=== PATIENT | male | born 1975 | race Caucasian/White ===

== ENCOUNTER 2018-03-12 19:59 | Observation (INO) | payer SELFPAY ==
[2018-03-12] MEDS ORDERED: ASPIRIN 81 MG CHEWABLE TABLET ONE (20:34)
[2018-03-12 20:41] LABS: Absolute Lymphocytes (CBC) 2.4 K/uL (0.7-4.9); Absolute Monocytes 1.2 K/uL (0.1-1.3); Absolute Neutrophil 8.7 K/uL (1.8-8.0); Basophils % 0.7 % (0-1.3); Eosinophils % 0.5 % (0-4.4); Hematocrit 52.4 % (39.6-49.0); Lymphocytes % 19.5 % (15.3-44.8); MCH 28.1 pg (27.0-35.0); MCV 84.3 fL (80-100); MPV 7.9 fL (7.6-11.3); Monocytes % 9.9 % (3.3-12.3); RBC Red Blood Cell Count 6.21 M/uL (4.33-5.43)
[2018-03-12 20:49] LABS: Barbiturates NEGATIVE (NEGATIVE); Benzodiazepines NEGATIVE (NEGATIVE); Cocaine NEGATIVE (NEGATIVE); METHAMPHETAM NEGATIVE (NEGATIVE); Opiates NEGATIVE (NEGATIVE); Phencyclidine NEGATIVE (NEGATIVE); THC Cannibis NEGATIVE (NEGATIVE)
--- NOTE | 2018-03-12 20:56 | RAD REPORT ---
EXAM DESCRIPTION: RAD - Chest Single View - 03/12/2018 8:47 pm CLINICAL HISTORY: Chest pain, chest pressure COMPARISON: August 2013 TECHNIQUE: AP portable chest image was obtained 2035 hours . FINDINGS: Lung volumes are low. No peripheral mass, consolidation or failure finding. Lung markings are not significantly different. Heart and vasculature are normal. No measurable pleural effusion and no pneumothorax. No gross bony abnormality seen. No acute aortic findings suspected. IMPRESSION: No acute cardiopulmonary process. No significant change from comparison.
[2018-03-12 21:05] LABS: Albumin 4.3 g/dL (3.2-5.5); Bilirubin Direct 0.2 mg/dL (0-0.2); Bilirubin Total 0.7 mg/dL (0.3-1.2); CKMB Creatine Kinase MB 4.7 ng/ml (0.3-4.0); Protein, Total 7.4 g/dL (6.0-8.3)
[2018-03-12 21:26] LABS: Protime INR 1.04
[2018-03-12] MEDS ORDERED: NA CHLORIDE 0.9% 2,000 ML ONE (21:33)
[2018-03-12] MEDS ORDERED: ENOXAPARIN 80 MG/0.8 ML SQ ONE (21:33)
[2018-03-12] MEDS ORDERED: METOPROLOL TAR 50 MG TAB ONE (21:33)
[2018-03-12 22:22] LABS: Urine Blood NEGATIVE (NEG); Urine Glucose NEGATIVE (NEG); Urine Protein NEGATIVE (NEG); Urine pH 6.5 (5.0-7.0)
--- NOTE | 2018-03-12 22:34 | ER ---
Nurse's Notes [facility] Name: Deniz Mariee Age: 42 yrs Sex: Male : 1975 Arrival Date: 03/12/2018 Time: 20:00 Bed 30 Private MD: Antelmo Vásquez K Diagnosis: Chest pain, unspecified;Rhabdomyolysis Presentation: 03/12 20:04 Presenting complaint: Patient states: Chest pressure and mouth dryness that started aj today. Patient reports starting testosterone in December. Transition of care: patient was not received from another setting of care. Onset of symptoms was March 12, 2018. Risk Assessment: Do you want to hurt yourself or someone else? Patient reports no desire to harm self or others. Care prior to arrival: None. 20:04 Method Of Arrival: Ambulatory aj 20:04 Acuity: GABRIELA 3 aj 20:38 Initial Sepsis Screen: Does the patient meet any 2 criteria? No. Patient's initial rk2 sepsis screen is negative. Does the patient have a suspected source of infection? No. Patient's initial sepsis screen is negative. Triage Assessment: 20:07 General: Appears in no apparent distress. comfortable, Behavior is cooperative, aj appropriate for age, anxious. Pain: Complains of pain in chest. Neuro: Level of Consciousness is awake, alert, obeys commands, Oriented to person, place, time, situation, Appropriate for age. Cardiovascular: Reports chest pain. Respiratory: Airway is patent Respiratory effort is even, unlabored, Respiratory pattern is regular, symmetrical. Derm: Skin is intact, is healthy with good turgor, Skin is pink, warm \T\ dry. normal. Historical: - Allergies: 20:07 No Known Allergies; aj - Home Meds: 20:07 testosterone cypionate (bulk) 100 % miscellaneous powd [Active]; aj - PMHx: 20:07 None; aj - PSHx: 20:07 Appendectomy; Neck; aj - Immunization history:: Adult Immunizations up to date. - Social history:: Smoking status: Patient/guardian denies using tobacco. - Ebola Screening: : Patient negative for fever greater than or equal to 101.5 degrees Fahrenheit, and additional compatible Ebola Virus Disease symptoms Patient denies exposure to infectious person Patient denies travel to an Ebola-affected area in the 21 days before illness onset No symptoms or risks identified at this time. - Family history:: not pertinent. Screenin:37 Abuse screen: Denies threats or abuse. Nutritional screening: No deficits noted. rk2 Tuberculosis screening: No symptoms or risk factors identified. Fall Risk None identified. Assessment: 20:38 Pain: Pain does not radiate. Pain began suddenly. rk2 20:39 General: Appears in no apparent distress. well groomed, well developed, well nourished, rk2 Behavior is anxious. Neuro: Level of Consciousness is alert, obeys commands, Oriented to person, place, time, situation. Cardiovascular: Rhythm is sinus rhythm. Respiratory: Reports shortness of breath Airway is patent Respiratory effort is even, unlabored, Respiratory pattern is regular, symmetrical, Breath sounds are clear bilaterally. Derm: Skin is pink, warm \T\ dry. 21:30 Reassessment: Patient appears in no apparent distress at this time. No changes from rk2 previously documented assessment. Patient and/or family updated on plan of care and expected duration. Pain level reassessed. No needs voiced. 22:30 Reassessment: Patient appears in no apparent distress at this time. No changes from rk2 previously documented assessment. Patient and/or family updated on plan of care and expected duration. Pain level reassessed. No needs voiced. 23:30 Reassessment: Patient appears in no apparent distress at this time. No changes from rk2 previously documented assessment. Patient and/or family updated on plan of care and expected duration. Pain level reassessed. Pt. voiced no needs \T\ this time... family \T\ bedside. 03/13 00:10 Reassessment: Called report to receiving RONNIE Richardson. rk2 Vital Signs: 03/12 20:07 BP 156 / 95; Pulse 92; Resp 16; Temp 99.0; Pulse Ox 97% on R/A; Weight 87.09 kg; Height aj 5 ft. 7 in. (170.18 cm); 21:04 BP 139 / 85; Pulse 87; Resp 17; Pulse Ox 97% on R/A; rk2 22:00 BP 159 / 88; Pulse 77; Resp 17; Pulse Ox 99% on R/A; rk2 23:00 BP 143 / 64; Pulse 77; Resp 17; Pulse Ox 100% on R/A; rk2 03/13 00:00 BP 121 / 69; Pulse 76; Resp 16; Pulse Ox 97% on R/A; rk2 03/12 20:07 Body Mass Index 30.07 (87.09 kg, 170.18 cm) ED Course: 03/12 20:00 Patient arrived in ED. ds1 20:00 Antelmo Vásquez MD is Private Physician. ds1 20:06 Triage completed. aj 20:07 Arm band placed on left wrist. Patient placed in an exam room. aj 20:09 Heather Dobson RN is Primary Nurse. rk2 20:10 Brad Pagan MD is Attending Physician. vickie 20:38 Patient has correct armband on for positive identification. Placed in gown. Bed in low rk2 position. Call light in reach. personnel monitor on. Pulse ox on. 20:39 Patient maintains SpO2 saturation greater than 95% on room air. rk2 20:42 XRAY Chest (1 view) Sent. rk2 20:44 X-ray completed. Portable x-ray completed in exam room. Patient tolerated procedure jb2 well. 20:44 XRAY Chest (1 view) In Process Unspecified. EDMS 22:32 Johnny Ochoa MD is Hospitalizing Provider. [facility] 03/13 00:13 No provider procedures requiring assistance completed. Patient admitted, IV remains in rk2 place. Administered Medications: 03/12 20:37 Drug: Aspirin Chewable Tablet 324 mg Route: PO; rk2 23:02 Follow up: Response: No adverse reaction rk2 21:37 Drug: NS 0.9% 1000 ml Route: IV; Rate: 1 bolus; Site: right antecubital; rk2 23:02 Follow up: Response: No adverse reaction; IV Status: Completed infusion rk2 21:37 Drug: Lopressor (metoprolol TARTRATE) 50 mg Route: PO; rk2 23:01 Follow up: Response: No adverse reaction rk2 21:38 Drug: NS 0.9% 1000 ml Route: IV; Rate: 1 bolus; Site: right antecubital; rk2 22:30 Follow up: Response: No adverse reaction; IV Status: Completed infusion rk2 21:38 Drug: Lovenox 1 mg/kg Route: Sub-Q; Site: left lower abdomen; rk2 23:01 Follow up: Response: No adverse reaction rk2 23:01 Drug: NS 0.9% 1000 ml Route: IV; Rate: 125 ml/hr; Site: right antecubital; rk2 03/13 00:10 Follow up: Response: No adverse reaction; IV Status: Completed infusion rk2 Outcome: 03/12 22:32 Decision to Hospitalize by Provider. [facility] 03/13 00:13 Admitted to Tele accompanied by tech, via wheelchair. rk2 Condition: improved Instructed on the need for admit. 00:14 Patient left the ED. rk2 Signatures: Dispatcher [employer] Bre Aleman, RN Brad Shanks MD MD cha Buechter, Jesse jb2 Sanford, Demi ds1 Heather Dobson RN RN rk2
--- NOTE | 2018-03-12 22:34 | EDPHYS ---
Physician Documentation [facility] Name: Deniz Mariee Age: 42 yrs Sex: Male : 1975 Arrival Date: 03/12/2018 Time: 20:00 Bed 30 Private MD: Antelmo Vásquez K ED Physician Brad Pagan HPI: 03/12 20:20 This 42 yrs old Male presents to ER via Ambulatory with complaints of Chest vickie Tightness. 20:20 The patient or guardian reports chest pain that is located primarily in the substernal vickie area. Onset: this morning. The pain does not radiate. Associated signs and symptoms: The patient has no apparent associated signs or symptoms. The chest pain is described as squeezing. Duration: The patient or guardian reports multiple episodes, that have now resolved. Modifying factors: The symptoms are alleviated by nothing. the symptoms are aggravated by nothing. Severity of pain: At its worst the pain was mild in the emergency department the pain is unchanged. The patient has not experienced similar symptoms in the past. Historical: - Allergies: 20:07 No Known Allergies; aj - Home Meds: 20:07 testosterone cypionate (bulk) 100 % miscellaneous powd [Active]; aj - PMHx: 20:07 None; aj - PSHx: 20:07 Appendectomy; Neck; aj - Immunization history:: Adult Immunizations up to date. - Social history:: Smoking status: Patient/guardian denies using tobacco. - Ebola Screening: : Patient negative for fever greater than or equal to 101.5 degrees Fahrenheit, and additional compatible Ebola Virus Disease symptoms Patient denies exposure to infectious person Patient denies travel to an Ebola-affected area in the 21 days before illness onset No symptoms or risks identified at this time. - Family history:: not pertinent. ROS: 20:20 Constitutional: Negative for fever, chills, and weight loss, Eyes: Negative for injury, vickie pain, redness, and discharge, ENT: Negative for injury, pain, and discharge, Neck: Negative for injury, pain, and swelling, Respiratory: Negative for shortness of breath, cough, wheezing, and pleuritic chest pain, Abdomen/GI: Negative for abdominal pain, nausea, vomiting, diarrhea, and constipation, Back: Negative for injury and pain, : Negative for injury, bleeding, discharge, and swelling, MS/Extremity: Negative for injury and deformity, Skin: Negative for injury, rash, and discoloration, Neuro: Negative for headache, weakness, numbness, tingling, and seizure, Psych: Negative for depression, anxiety, suicide ideation, homicidal ideation, and hallucinations, Allergy/Immunology: Negative for hives, rash, and allergies, Endocrine: Negative for neck swelling, polydipsia, polyuria, polyphagia, and marked weight changes, Hematologic/Lymphatic: Negative for swollen nodes, abnormal bleeding, and unusual bruising. 20:20 Cardiovascular: Positive for chest pain, of the chest. Exam: 20:20 Constitutional: This is a well developed, well nourished patient who is awake, alert, vickie and in no acute distress. Head/Face: Normocephalic, atraumatic. Eyes: Pupils equal round and reactive to light, extra-ocular motions intact. Lids and lashes normal. Conjunctiva and sclera are non-icteric and not injected. Cornea within normal limits. Periorbital areas with no swelling, redness, or edema. ENT: Nares patent. No nasal discharge, no septal abnormalities noted. Tympanic membranes are normal and external auditory canals are clear. Oropharynx with no redness, swelling, or masses, exudates, or evidence of obstruction, uvula midline. Mucous membranes moist. Neck: Trachea midline, no thyromegaly or masses palpated, and no cervical lymphadenopathy. Supple, full range of motion without nuchal rigidity, or vertebral point tenderness. No Meningismus. Chest/axilla: Normal chest wall appearance and motion. Nontender with no deformity. No lesions are appreciated. Cardiovascular: Regular rate and rhythm with a normal S1 and S2. No gallops, murmurs, or rubs. Normal PMI, no JVD. No pulse deficits. Respiratory: Lungs have equal breath sounds bilaterally, clear to auscultation and percussion. No rales, rhonchi or wheezes noted. No increased work of breathing, no retractions or nasal flaring. Abdomen/GI: Soft, non-tender, with normal bowel sounds. No distension or tympany. No guarding or rebound. No evidence of tenderness throughout. Back: No spinal tenderness. No costovertebral tenderness. Full range of motion. Male : Normal genitalia with no discharge or lesions. Skin: Warm, dry with normal turgor. Normal color with no rashes, no lesions, and no evidence of cellulitis. MS/ Extremity: Pulses equal, no cyanosis. Neurovascular intact. Full, normal range of motion. Neuro: Awake and alert, GCS 15, oriented to person, place, time, and situation. Cranial nerves II-XII grossly intact. Motor strength 5/5 in all extremities. Sensory grossly intact. Cerebellar exam normal. Normal gait. Psych: Awake, alert, with orientation to person, place and time. Behavior, mood, and affect are within normal limits. 20:22 Musculoskeletal/extremity: DVT Exam: No signs of deep vein thrombosis. no pain, no vickie swelling, no tenderness, negative Homans' sign noted on exam, no appreciated bluish discoloration, no erythema, no increased warmth. Vital Signs: 20:07 BP 156 / 95; Pulse 92; Resp 16; Temp 99.0; Pulse Ox 97% on R/A; Weight 87.09 kg; Height aj 5 ft. 7 in. (170.18 cm); 21:04 BP 139 / 85; Pulse 87; Resp 17; Pulse Ox 97% on R/A; rk2 22:00 BP 159 / 88; Pulse 77; Resp 17; Pulse Ox 99% on R/A; rk2 23:00 BP 143 / 64; Pulse 77; Resp 17; Pulse Ox 100% on R/A; rk2 03/13 00:00 BP 121 / 69; Pulse 76; Resp 16; Pulse Ox 97% on R/A; rk2 03/12 20:07 Body Mass Index 30.07 (87.09 kg, 170.18 cm) aj MDM: 03/12 20:11 Patient medically screened. [facility] 20:22 Data reviewed: vital signs, nurses notes, lab test result(s), EKG, radiologic studies, vickie plain films. 03/12 20:15 Order name: Basic Metabolic Panel; Complete Time: 21:18 [facility] 03/12 20:15 Order name: BNP; Complete Time: 21:18 [facility] 03/12 20:15 Order name: CBC with Diff; Complete Time: 20:48 [facility] 03/12 20:15 Order name: Ckmb; Complete Time: 21:18 [facility] 03/12 20:15 Order name: CPK; Complete Time: 21:18 [facility] 03/12 20:15 Order name: LFT's; Complete Time: 21:18 [facility] 03/12 20:15 Order name: Magnesium; Complete Time: 21:18 [facility] 03/12 20:15 Order name: PT-INR; Complete Time: 22:31 [facility] 03/12 20:15 Order name: Ptt, Activated; Complete Time: 22:31 [facility] 03/12 20:15 Order name: Troponin (emerg Dept Use Only); Complete Time: 21:18 [facility] 03/12 20:15 Order name: XRAY Chest (1 view); Complete Time: 21:18 [facility] 03/12 20:20 Order name: UDS; Complete Time: 21:18 [facility] 03/12 20:32 Order name: Urine Dipstick--Ancillary (enter results); Complete Time: 22:31 [facility] 03/12 20:15 Order name: EKG; Complete Time: 20:15 [facility] 03/12 20:15 Order name: Cardiac monitoring; Complete Time: 20:36 [facility] 03/12 20:15 Order name: EKG - Nurse/Tech; Complete Time: 20:42 [facility] 03/12 20:15 Order name: IV Saline Lock; Complete Time: 20:36 [facility] 03/12 20:15 Order name: Labs collected and sent; Complete Time: 20:36 [facility] 03/12 20:15 Order name: O2 Per Protocol; Complete Time: 20:36 [facility] 03/12 20:15 Order name: O2 Sat Monitoring; Complete Time: 20:36 [facility] 03/12 20:15 Order name: Urine Dipstick-Ancillary (obtain specimen); Complete Time: 20:30 [facility] 03/12 22:39 Order name: CONS Physician Consult EDMS Administered Medications: 20:37 Drug: Aspirin Chewable Tablet 324 mg Route: PO; rk2 23:02 Follow up: Response: No adverse reaction rk2 21:37 Drug: NS 0.9% 1000 ml Route: IV; Rate: 1 bolus; Site: right antecubital; rk2 23:02 Follow up: Response: No adverse reaction; IV Status: Completed infusion rk2 21:37 Drug: Lopressor (metoprolol TARTRATE) 50 mg Route: PO; rk2 23:01 Follow up: Response: No adverse reaction rk2 21:38 Drug: NS 0.9% 1000 ml Route: IV; Rate: 1 bolus; Site: right antecubital; rk2 22:30 Follow up: Response: No adverse reaction; IV Status: Completed infusion rk2 21:38 Drug: Lovenox 1 mg/kg Route: Sub-Q; Site: left lower abdomen; rk2 23:01 Follow up: Response: No adverse reaction rk2 23:01 Drug: NS 0.9% 1000 ml Route: IV; Rate: 125 ml/hr; Site: right antecubital; rk2 03/13 00:10 Follow up: Response: No adverse reaction; IV Status: Completed infusion rk2 Disposition: 03/12/18 22:32 Hospitalization ordered by Johnny Ochoa for Observation. Preliminary diagnosis are Chest pain, unspecified, Rhabdomyolysis. - Bed requested for Telemetry/MedSurg (observation). - Status is Observation. rk2 - Condition is Stable. - Problem is new. - Symptoms have improved. UTI on Admission? No Signatures: Dispatcher [employer] EDMS Alma Linda RN RN kl Myers, Amanda, RN RN aj Anderson, Corey, MD MD cha Kidder, Rhonda, RN RN rk2 Corrections: (The following items were deleted from the chart) 00:00 03/12 22:32 Hospitalization Ordered by Johnny Ochoa MD for Observation. Preliminary kl diagnosis is Chest pain, unspecified; Rhabdomyolysis. Bed requested for Telemetry/MedSurg (observation). Status is Observation. Condition is Stable. Problem is new. Symptoms have improved. UTI on Admission? No. vickie 03/13 00:14 00:00 03/12/2018 22:32 Hospitalization Ordered by Johnny Ochoa MD for Observation. rk2 Preliminary diagnosis is Chest pain, unspecified; Rhabdomyolysis. Bed requested for Telemetry/MedSurg (observation). Status is Observation. Condition is Stable. Problem is new. Symptoms have improved. UTI on Admission? No. dwain
[2018-03-12] MEDS ORDERED: NA CHLORIDE 0.9% 1,000 ML ONE (22:56)
--- NOTE | 2018-03-13 00:06 | P.HP ---
Certification for Inpatient Patient admitted to: Observation With expected LOS: <2 Midnights Practitioner: I am a practitioner with admitting privileges, knowledge of patient current condition, hospital course, and medical plan of care. Services: Services provided to patient in accordance with Admission requirements found in Title 42 Section 412.3 of the Code of Federal Regulations Patient History Date of Service: 03/12/18 Reason for admission: chest pain History of Present Illness: Mr Mariee is a 42 years old male who start taking testosterone replacement since December 2017. He came to ED today complaining of chest pain. The pain start this morning, he describe it as tightness sensation in his upper left side of the chest. It was associated with nausea and SOB. He also had cramps on his left wrist at the time of chest pain. He denied diaphoresis episode. the pain this morning last for 20 minutes, then he had a new episode this afternoon, with similar presentation and came to ED for evaluation. 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 Yesterday was a busy day for him in the gym. Subsequently he had a deep tissue massage. CK total is 1035. Trop negative. EKG shows no ST-T abnormalities. Chest pain already resolved. Allergies No Known Allergies Allergy (Unverified 03/10/12 14:29) - Past Medical/Surgical History -: low testotesrone level -: appex -: neck - Family History Family History: Reviewed- Non-Contributory - Social History Smoking Status: Never smoker Alcohol use: No CD- Drugs: No Caffeine use: No Place of Residence: Home Review of Systems 10-point ROS is otherwise unremarkable Physical Examination - Physical Exam General: Alert, In no apparent distress HEENT: Atraumatic, PERRLA, Mucous membr. moist/pink, EOMI, Sclerae nonicteric Neck: Supple, 2+ carotid pulse no bruit, No LAD, Without JVD or thyroid abnormality Respiratory: Clear to auscultation bilaterally, Normal air movement Cardiovascular: Regular rate/rhythm, Normal S1 S2 Gastrointestinal: Normal bowel sounds, No tenderness Musculoskeletal: No tenderness Integumentary: No rashes Neurological: Normal speech, Normal strength at 5/5 x4 extr, Normal tone, Normal affect Lymphatics: No axilla or inguinal lymphadenopathy - Studies Laboratory Data (last 24 hrs) 03/12/18 20:31: PT 12.3, INR 1.04, APTT 28.0 03/12/18 20:31: WBC 12.5 H, Hgb 17.5, Hct 52.4 H, Plt Count 230 03/12/18 20:31: B-Natriuretic Peptide 22 03/12/18 20:31: Sodium 136, Potassium 4.0, BUN 18, Creatinine 1.15, Glucose 129 H, Magnesium 2.0, Total Bilirubin 0.7, AST 66 H, ALT 80 H, Alkaline Phosphatase 63 Assessment and Plan - Problems (Diagnosis) (1) Chest pain Current Visit: Yes Status: Acute Qualifiers: Chest pain type: unspecified Qualified Code(s): R07.9 - Chest pain, unspecified (2) Testosterone deficiency Current Visit: Yes Status: Acute (3) Rhabdomyolysis Current Visit: Yes Status: Acute Qualifiers: Rhabdomyolysis type: traumatic Encounter type: initial encounter Qualified Code(s): T79.6XXA - Traumatic ischemia of muscle, initial encounter - Plan The patient will be admitted to the hospital due to chest pain. He has also elevated total CK consistent with rhabdomyolisis. Trop I negative, EKG without ST-T abnormalities. Will order serial cardiac enzymes and ekg monitor tech. Start IV fluids for Rhabdomyolisis. Order ECHO, consult Cardiology team. - Advance Directives Does patient have a Living Will: No Does patient have a Durable POA for Healthcare: No - Code Status/Comfort Care Code Status Assessed: Yes Code Status: Full Code
[2018-03-13] MEDS ORDERED: ONDANSETRON 4 MG/2 ML VIAL IV PRN (00:17)
[2018-03-13] MEDS ORDERED: ACETAMINOPHEN 500 MG TAB PO PRN (00:17)
[2018-03-13] MEDS ORDERED: NA CHLORIDE 0.9% 1,000 ML IV SCH (00:17)
[2018-03-13 00:33] VITALS: O2SAT 100
[2018-03-13 02:28] VITALS: BMI 30.2
[2018-03-13] MEDS ORDERED: REGADENOSON 0.4 MG/5 ML SYR IV ONE (07:44)
--- NOTE | 2018-03-13 08:26 | EKG ---
Test Date: 2018-03-12 Test Time: 20:36:38 [employer] Salesperson: NIK MEASUREMENT RESULTS: Intervals: Rate: 86 MO: 168 QRSD: 86 QT: 354 QTc: 423 [place]: P: 46 MO: 168 QRS: 4 T: 2 INTERPRETIVE STATEMENTS: Normal sinus rhythm Normal ECG Compared to ECG 12/14/2013 18:46:18 No significant changes Electronically Signed On 03-13-18 08:24:42 CDT by Nils Mei
[2018-03-13] MEDS ORDERED: ASPIRIN 81 MG CHEWABLE TABLET PO SCH (09:00)
[2018-03-13 12:26] VITALS: BP 123/66; TEMP 98.4
--- NOTE | 2018-03-13 12:47 | CON ---
Date of Consultation: 03/13/[address] Sylvester on 03/12/2018. On 03/13/2018, the patient was to be seen. History Of Present Illness: He is a 42-year-old, has no significant past medical history. Came in w ith an elevated white count of 12,000, elevated liver function enzyme, elevated CPK, negative MB, neg ative troponin, consistent with rhabdomyolysis. No significant chest pain. There was body aches all over. The patient refused any cardiac testing. Past Medical History: Otherwise stated by Dr. Sylvester. Medications At Home: Aspirin and testosterone. Review of Systems: Noncontributory. Social History: Noncontributory. Family History: Noncontributory. Physical Examination: Vitals were reportedly normal. Diagnostic Data: Showed a white count of 12,000. AST of 66, ALT of 80. CPK is 1037 with MB of 4.7. Negative troponin. Negative chest x-ray. Negative EKG. Echocardiogram and Lexiscan were ordered, but the patient refused to be evaluated. I will sign off his case. DENA/CARSON Voice ID: [id number] Report ID: [id number]
[2018-03-13] MEDS ORDERED: ENOXAPARIN 40 MG/0.4 ML SQ SCH (21:00)
--- NOTE | 2018-03-14 03:30 | DS ---
Date of Discharge: 03/13/2018 Medical Educator: Nils Mei MD Admitting Diagnoses: 1. Chest pain. 2. Testosterone deficiency. 3. Rhabdomyolysis. Discharge Diagnoses: 1. Atypical chest pain. 2. Testosterone deficiency, on replacement. 3. Acute rhabdomyolysis. 4. Elevated liver enzymes. Hospital Course: The patient is a 42-year-old male, who is on supplemental testosterone, who has an intense gym workup schedule and works out 5 days a week. The patient stated that he has been having cramping in his legs and felt dehydrated, has been on testosterone, and was worried that after reading the pamphlet on testosterone, he felt that he had some of the symptoms, which were warning signs, did seek medical care. The patient came into the hospital. He denied any chest pain or shortness of breath. His workup included negative cardiac enzymes x3. However, he was found to have elevated CPK level of 1037 and an elevated liver enzymes. This was consistent with acute rhabdomyolysis. The patient is currently on IV fluid and IV hydration. He did have a mildly elevated white blood cell count, which was likely related to acute phase reactant. His chest x-ray was negative. EKG did not show any acute changes. It showed normal sinus rhythm. The patient remained chest pain free throughout the duration of the hospitalization. After being seen by the taste tester, Dr. Mei, the patient refused stress test, refused the third troponin level draw. He also refused other blood draws. The patient was wanting to leave, and I explained to him the risks including [place], , or worsening rhabdomyolysis. The patient voiced understanding, stated that he pays child support, does not want to stay in the hospital and wants to leave. The patient was counseled that given his history of premature coronary artery disease in the family and the fact that he is on testosterone, which puts him at risk for heart disease that he should be evaluated further, however, was not interested. The patient and his stated that they would rather follow up as outpatient. The patient then was counseled to aggressively hydrate himself and to avoid working out for the next 3-5 days and to slowly return to his workout routine under the supervision of a physician. He was also recommended to be weaned off the testosterone by his current medical provider. He understands that he cannot discontinue testosterone abruptly. Discharge Physical Examination: General: Awake, alert, oriented, no acute distress. Obese, BMI 30. CV: S1, S2. No murmurs. Respiratory: Clear to auscultation bilaterally. No wheezing. Gastrointestinal: Abdomen is soft, nontender, nondistended. Positive bowel sounds. Extremities: No clubbing, cyanosis, or edema. Neurologic: Nonfocal. /CARSON Voice ID: [id number] Report ID: [id number] [facility]
== END 2018-03-13 12:43 | disposition left against medical advice (07) ==
LOC: ER 19:59 → ERHOLD 22:53 → 2ND 03-13 00:02
PROVIDERS: ADMIT Internal Medicine; ATTEND Internal Medicine
DX: R07.89 Other chest pain (principal); E29.1 Testicular hypofunction; M62.82 Rhabdomyolysis; R74.8 Abnormal levels of other serum enzymes
CPT/HCPCS: 36415; 71045; 80048; 80076; 80307; 81003; 82550; 82553; 83735; 83880; 84484; 85025; 85610; 85730; 93005; 96360; 96361; 96372; 99285; G0378; J1650; J2785; J7030

== ENCOUNTER 2018-03-25 11:03 | Emergency (ER) | payer SELFPAY ==
[2018-03-25] MEDS ORDERED: NA CHLORIDE 0.9% 1,000 ML ONE (11:28)
[2018-03-25 12:29] LABS: Absolute Lymphocytes (CBC) 1.6 K/uL (0.7-4.9); Basophils % 0.8 % (0-1.3); Eosinophils % 1.4 % (0-4.4); Hematocrit 54.9 % (39.6-49.0); Lymphocytes % 23.5 % (15.3-44.8); MCV 85.5 fL (80-100); MPV 7.7 fL (7.6-11.3); Monocytes % 15.3 % (3.3-12.3); RBC Red Blood Cell Count 6.42 M/uL (4.33-5.43)
[2018-03-25 13:02] LABS: ALT/SGPT 79 U/L (12-78); AST/SGOT 37 U/L (15-37); Albumin 3.7 g/dL (3.4-5.0); Alkaline Phosphatase 65 U/L (45-117); BUN Blood Urea Nitrogen 17 mg/dL (7-18); Bicarbonate 31 mmol/L (21-32); Bilirubin Direct < 0.1 mg/dL (0-0.2); Bilirubin Total 0.3 mg/dL (0.2-1.0); CKMB Creatine Kinase MB 2.9 ng/mL (0.3-3.6); Creatine Phosphokinase 431 U/L (39-308); Glucose Level 101 mg/dL (74-106); Magnesium 2.2 mg/dL (1.8-2.4); Potassium 3.7 mmol/L (3.5-5.1); Protein, Total 7.6 g/dL (6.4-8.2); Sodium Level 136 mmol/L (136-145)
--- NOTE | 2018-03-25 13:37 | ER ---
Nurse's Notes [facility] Name: Deniz Mariee Age: 42 yrs Sex: Male : 1975 Arrival Date: 03/25/2018 Time: 11:05 Bed 2 Private MD: Diagnosis: Chest pain, unspecified;Weakness Presentation: 03/25 11:16 Presenting complaint: Patient states: was admitted about 12 days ago for rhabdo and was sv discharged. Pt reports he worked out yesterday for about 45 minutes and took some vitamins and Propel water. Pt reports today about an hour ago he started having chest and left arm tightness and shakiness. Pt reports symptoms have subsided since he has been drinking water. Transition of care: patient was not received from another setting of care. Onset of symptoms was March 25, 2018 at 10:00. Care prior to arrival: None. 11:16 Method Of Arrival: Ambulatory sv 11:16 Acuity: GABRIELA 3 sv 11:20 Risk Assessment: Do you want to hurt yourself or someone else? Patient reports no iw desire to harm self or others. 11:25 Initial Sepsis Screen: Does the patient meet any 2 criteria? Does the patient have a iw suspected source of infection? No. Patient's initial sepsis screen is negative. Historical: - Allergies: 11:25 No Known Allergies; sv - Home Meds: 11:25 testosterone cypionate (bulk) 100 % miscellaneous powd [Active]; vitamins [Active]; sv - PMHx: 11:25 None; sv - PSHx: 11:25 Appendectomy; Neck; sv - Immunization history:: Adult Immunizations up to date. - Family history:: not pertinent. - Ebola Screening: : Patient negative for fever greater than or equal to 101.5 degrees Fahrenheit, and additional compatible Ebola Virus Disease symptoms Patient denies exposure to infectious person Patient denies travel to an Ebola-affected area in the 21 days before illness onset No symptoms or risks identified at this time. - Social history:: Smoking status: unknown. Screenin:26 Abuse screen: Denies threats or abuse. Denies injuries from another. Nutritional ss screening: No deficits noted. Tuberculosis screening: Never had TB. Fall Risk None identified. Assessment: 11:30 Reassessment: Pt is refusing EKG, verbalizes understanding of tests and risks of ss refusing EKG. 12:24 General: Appears in no apparent distress. comfortable, Behavior is calm, cooperative, ss Denies fever, feeling ill, fatigue, chills. Pain: Denies pain. Neuro: Level of Consciousness is awake, alert, obeys commands, Oriented to person, place, time, situation, Linen Grader are equal bilaterally. Cardiovascular: Heart tones S1 S2 present Capillary refill < 3 seconds is brisk in bilateral fingers Patient's skin is warm and dry. Respiratory: Airway is patent Respiratory effort is even, unlabored, Respiratory pattern is regular, symmetrical, Breath sounds are clear bilaterally. GI: Patient currently denies abdominal pain, diarrhea, nausea, vomiting. : Reports "my urine is actually clearing up.". EENT: Oral mucosa is moist. Throat is clear. Derm: Skin is intact, is healthy with good turgor, Skin is dry, Skin is pink, warm \\T\\ dry. normal. Musculoskeletal: Circulation, motion, and sensation intact. Range of motion: intact in all extremities, Swelling absent. 12:26 Reassessment: Pt seems upset about his medical bills from his previous admission and ss reported that he was advised be a health care coordinator that they could assist him with his medical bills if he is seen twice for the same complaint. 13:30 Reassessment: Patient appears in no apparent distress at this time. Patient and/or sg family updated on plan of care and expected duration. Pain level reassessed. Patient is alert, oriented x 3, equal unlabored respirations, skin warm/dry/pink. at bedside updating pt on POC and results, pt stated understanding. Vital Signs: 11:16 BP 130 / 82; Pulse 79; Resp 18; Temp 97.8; Pulse Ox 96% ; Weight 88 kg; Height 5 ft. 7 sv in. (170.18 cm); 12:29 Pulse 74; Resp 16; Pulse Ox 98% on R/A; Pain 0/10; ss 11:16 Body Mass Index 30.38 (88.00 kg, 170.18 cm) sv ED Course: 11:05 Patient arrived in ED. as 11:16 Arm band placed on right wrist. Patient placed in an exam room, on a stretcher, on sv pulse oximetry. 11:18 Brad Pagan MD is Attending Physician. [facility] 11:24 Triage completed. sv 12:17 Inserted saline lock: 20 gauge in left antecubital area, using aseptic technique. Blood ss collected. 12:26 Patient has correct armband on for positive identification. Bed in low position. Call ss light in reach. Side rails up X 1. Adult w/ patient. Pulse ox on. NIBP on. 13:36 Nils Mei MD is Referral Physician. vickie 13:52 EKG done, by pyrotechnist. reviewed by Brad Pagan MD. at1 14:10 No provider procedures requiring assistance completed. IV discontinued, intact, iw bleeding controlled, No redness/swelling at site. Pressure dressing applied. 14:11 Selena Carrillo, RN is Primary Nurse. iw Administered Medications: 12:18 Drug: NS 0.9% 1000 ml Route: IV; Rate: 1 bolus; Site: left antecubital; ss 13:15 Follow up: Response: No adverse reaction; IV Status: Completed infusion; IV Intake: sg 990ml Intake: 13:15 IV: 990ml; Total: 990ml. sg Outcome: 13:37 Discharge ordered by . vickie 14:10 Discharged to home ambulatory, with family. iw 14:10 Condition: good 14:10 Discharge instructions given to patient, Instructed on discharge instructions, follow up and referral plans. Demonstrated understanding of instructions, follow-up care. 14:11 Patient left the ED. iw Signatures: Amita Bergman, RN Julio Cesar Holley, RN Brad Rodrigez MD MD cha Martinez, Amelia as Selena Carrillo RN RN Cristina Zhang RN RN ss gonzales, Amanda, auto detailer EKG Tat1
--- NOTE | 2018-03-25 13:37 | EDPHYS ---
Physician Documentation [facility] Name: Deniz Mariee Age: 42 yrs Sex: Male : 1975 Arrival Date: 03/25/2018 Time: 11:05 Bed 2 Private MD: ED Physician Brad Pagan HPI: 03/25 13:34 This 42 yrs old Male presents to ER via Ambulatory with complaints of vickie Dehydration, Doesn't Feel Right. 13:34 weak, dry mouth. Onset: The symptoms/episode began/occurred just prior to arrival, this vickie morning. Severity of symptoms: At their worst the symptoms were mild in the emergency department the symptoms are unchanged. The patient has not experienced similar symptoms in the past. Historical: - Allergies: 11:25 No Known Allergies; sv - Home Meds: 11:25 testosterone cypionate (bulk) 100 % miscellaneous powd [Active]; vitamins [Active]; sv - PMHx: 11:25 None; sv - PSHx: 11:25 Appendectomy; Neck; sv - Immunization history:: Adult Immunizations up to date. - Family history:: not pertinent. - Ebola Screening: : Patient negative for fever greater than or equal to 101.5 degrees Fahrenheit, and additional compatible Ebola Virus Disease symptoms Patient denies exposure to infectious person Patient denies travel to an Ebola-affected area in the 21 days before illness onset No symptoms or risks identified at this time. - Social history:: Smoking status: unknown. ROS: 13:34 Constitutional: Negative for fever, chills, and weight loss, Eyes: Negative for injury, vickie pain, redness, and discharge, ENT: Negative for injury, pain, and discharge, Neck: Negative for injury, pain, and swelling, Respiratory: Negative for shortness of breath, cough, wheezing, and pleuritic chest pain, Abdomen/GI: Negative for abdominal pain, nausea, vomiting, diarrhea, and constipation, Back: Negative for injury and pain, : Negative for injury, bleeding, discharge, and swelling, MS/Extremity: Negative for injury and deformity, Skin: Negative for injury, rash, and discoloration, Neuro: Negative for headache, weakness, numbness, tingling, and seizure, Psych: Negative for depression, anxiety, suicide ideation, homicidal ideation, and hallucinations, Allergy/Immunology: Negative for hives, rash, and allergies, Endocrine: Negative for neck swelling, polydipsia, polyuria, polyphagia, and marked weight changes, Hematologic/Lymphatic: Negative for swollen nodes, abnormal bleeding, and unusual bruising. 13:34 Cardiovascular: Positive for palpitations. Exam: 13:34 Constitutional: This is a well developed, well nourished patient who is awake, alert, vickie and in no acute distress. Head/Face: Normocephalic, atraumatic. Eyes: Pupils equal round and reactive to light, extra-ocular motions intact. Lids and lashes normal. Conjunctiva and sclera are non-icteric and not injected. Cornea within normal limits. Periorbital areas with no swelling, redness, or edema. ENT: Nares patent. No nasal discharge, no septal abnormalities noted. Tympanic membranes are normal and external auditory canals are clear. Oropharynx with no redness, swelling, or masses, exudates, or evidence of obstruction, uvula midline. Mucous membranes moist. Neck: Trachea midline, no thyromegaly or masses palpated, and no cervical lymphadenopathy. Supple, full range of motion without nuchal rigidity, or vertebral point tenderness. No Meningismus. Chest/axilla: Normal chest wall appearance and motion. Nontender with no deformity. No lesions are appreciated. Cardiovascular: Regular rate and rhythm with a normal S1 and S2. No gallops, murmurs, or rubs. Normal PMI, no JVD. No pulse deficits. Respiratory: Lungs have equal breath sounds bilaterally, clear to auscultation and percussion. No rales, rhonchi or wheezes noted. No increased work of breathing, no retractions or nasal flaring. Abdomen/GI: Soft, non-tender, with normal bowel sounds. No distension or tympany. No guarding or rebound. No evidence of tenderness throughout. Back: No spinal tenderness. No costovertebral tenderness. Full range of motion. Male : Normal genitalia with no discharge or lesions. Skin: Warm, dry with normal turgor. Normal color with no rashes, no lesions, and no evidence of cellulitis. MS/ Extremity: Pulses equal, no cyanosis. Neurovascular intact. Full, normal range of motion. Neuro: Awake and alert, GCS 15, oriented to person, place, time, and situation. Cranial nerves II-XII grossly intact. Motor strength 5/5 in all extremities. Sensory grossly intact. Cerebellar exam normal. Normal gait. Psych: Awake, alert, with orientation to person, place and time. Behavior, mood, and affect are within normal limits. Vital Signs: 11:16 BP 130 / 82; Pulse 79; Resp 18; Temp 97.8; Pulse Ox 96% ; Weight 88 kg; Height 5 ft. 7 sv in. (170.18 cm); 12:29 Pulse 74; Resp 16; Pulse Ox 98% on R/A; Pain 0/10; ss 11:16 Body Mass Index 30.38 (88.00 kg, 170.18 cm) sv MDM: 11:18 Patient medically screened. [facility] 13:36 Data reviewed: vital signs, nurses notes, lab test result(s), EKG. [facility] 03/25 11:19 Order name: Basic Metabolic Panel; Complete Time: 13:11 [facility] 03/25 11:19 Order name: CBC with Diff; Complete Time: 13:11 [facility] 03/25 11:19 Order name: Ckmb; Complete Time: 13:11 [facility] 03/25 11:19 Order name: CPK; Complete Time: 13:11 [facility] 03/25 11:19 Order name: LFT's; Complete Time: 13:11 [facility] 03/25 11:19 Order name: Magnesium; Complete Time: 13:11 [facility] 03/25 11:19 Order name: Troponin (emerg Dept Use Only); Complete Time: 13:11 [facility] 03/25 11:19 Order name: Cardiac monitoring; Complete Time: 11:40 [facility] 03/25 11:19 Order name: IV Saline Lock; Complete Time: 12:18 [facility] 03/25 11:19 Order name: Labs collected and sent; Complete Time: 12:18 [facility] 03/25 13:38 Order name: EKG; Complete Time: 13:38 [facility] 03/25 11:19 Order name: O2 Per Protocol; Complete Time: 11:40 [facility] 03/25 11:19 Order name: O2 Sat Monitoring; Complete Time: 11:40 [facility] 03/25 13:38 Order name: EKG - Nurse/Tech [facility] Administered Medications: 12:18 Drug: NS 0.9% 1000 ml Route: IV; Rate: 1 bolus; Site: left antecubital; ss 13:15 Follow up: Response: No adverse reaction; IV Status: Completed infusion; IV Intake: sg 990ml Disposition: 03/25/18 13:37 Discharged to Home. Impression: Chest pain, unspecified, Weakness. - Condition is Stable. - Discharge Instructions: Nonspecific Chest Pain, Weakness, Nonspecific Chest Pain, [id number], Weakness, [id number]. - Medication Reconciliation Form, Thank You Letter, Antibiotic Education, Prescription Opioid Use form. - Follow up: Private Physician; When: 2 - 3 days; Reason: Recheck today's complaints, Continuance of care, Re-evaluation by your physician. Follow up: Nils Mei MD; When: 2 - 3 days; Reason: Recheck today's complaints, Re-evaluation by your physician. - Problem is new. - Symptoms have improved. Signatures: Dispatcher [employer] EDAmita Fabian, RONNIE RN Brad Layne MD MD cha Williams, Irene, RN RN iw Smirch, Shelby, RN RN ss Gay, Steven RN sg Corrections: (The following items were deleted from the chart) 11:31 11:19 EKG - Nurse/Tech ordered. [facility] 14:11 13:37 03/25/2018 13:37 Discharged to Home. Impression: Chest pain, unspecified; iw Weakness. Condition is Stable. Forms are Medication Reconciliation Form, Thank You Letter, Antibiotic Education, Prescription Opioid Use. Follow up: Private Physician; When: 2 - 3 days; Reason: Recheck today's complaints, Continuance of care, Re-evaluation by your physician. Follow up: Nils Mei; When: 2 - 3 days; Reason: Recheck today's complaints, Re-evaluation by your physician. Problem is new. Symptoms have improved. vickie
[2018-03-25 14:22] VITALS: BP 130/82; TEMP 97.8
[2018-03-25 14:23] VITALS: O2SAT 98
--- NOTE | 2018-03-25 15:38 | EKG ---
Test Date: 2018-03-25 Test Time: 13:45:38 Brineyard Supervisor: PERLITA MEASUREMENT RESULTS: Intervals: Rate: 58 TX: 164 QRSD: 96 QT: 394 QTc: 386 [place]: P: 54 TX: 164 QRS: 7 T: -5 INTERPRETIVE STATEMENTS: Sinus bradycardia Otherwise normal ECG Compared to ECG 03/12/2018 20:36:38 Sinus rhythm no longer present Electronically Signed On 03-25-18 15:38:10 CDT by Nils Mei
== END 2018-03-25 14:11 | disposition home or self-care (01) ==
LOC: ER 11:03
DX: R07.9 Chest pain, unspecified (principal); E86.0 Dehydration; R53.1 Weakness
CPT/HCPCS: 36415; 80048; 80076; 82550; 82553; 83735; 84484; 85025; 93005; 96360; 99284; J7030

== ENCOUNTER 2018-03-27 19:50 | Emergency (ER) | payer SELFPAY ==
--- NOTE | 2018-03-27 21:23 | RAD REPORT ---
EXAM DESCRIPTION: RAD - Chest Single View - 03/27/2018 9:03 pm CLINICAL HISTORY: CHEST PAIN Chest pain. COMPARISON: Chest Single View dated 03/12/2018; CHEST PA AND LAT 2 VIEW dated 09/22/2013; CHEST SINGL E VIEW dated 04/17/2009; CHEST PA AND LAT 2 VIEW dated 12/24/2001 FINDINGS: Portable technique limits examination quality. The lungs are grossly clear. The heart is normal in size. No displaced fractures. IMPRESSION: No acute intrathoracic process suspected.
[2018-03-27 21:33] LABS: Absolute Monocytes 1.2 K/uL (0.1-1.3); Absolute Neutrophil 4.1 K/uL (1.8-8.0); Basophils % 0.7 % (0-1.3); Hematocrit 51.2 % (39.6-49.0); Lymphocytes % 26.5 % (15.3-44.8); MCH 28.3 pg (27.0-35.0); MCV 84.8 fL (80-100); MPV 7.6 fL (7.6-11.3); Monocytes % 16.3 % (3.3-12.3); RBC Red Blood Cell Count 6.04 M/uL (4.33-5.43)
[2018-03-27 21:39] LABS: Protime INR 1.07
[2018-03-27 21:52] LABS: ALT/SGPT 78 U/L (12-78); AST/SGOT 38 U/L (15-37); Albumin 3.7 g/dL (3.4-5.0); Alkaline Phosphatase 62 U/L (45-117); BUN Blood Urea Nitrogen 19 mg/dL (7-18); Bicarbonate 31 mmol/L (21-32); Bilirubin Direct < 0.1 mg/dL (0-0.2); Bilirubin Total 0.3 mg/dL (0.2-1.0); CKMB Creatine Kinase MB 2.2 ng/mL (0.3-3.6); Creatine Phosphokinase 451 U/L (39-308); Glucose Level 99 mg/dL (74-106); Magnesium 2.2 mg/dL (1.8-2.4); NT PRO-BNP 10 pg/mL (<125); Potassium 3.6 mmol/L (3.5-5.1); Protein, Total 7.4 g/dL (6.4-8.2); Sodium Level 137 mmol/L (136-145)
[2018-03-27] MEDS ORDERED: ASPIRIN 81 MG CHEWABLE TABLET ONE (22:20)
[2018-03-27 23:31] LABS: Urine Blood NEGATIVE (NEG); Urine Glucose NEGATIVE (NEG); Urine Protein NEGATIVE (NEG)
--- NOTE | 2018-03-28 00:04 | EDPHYS ---
Physician Documentation [facility] Name: Deniz Mariee Age: 42 yrs Sex: Male : 1975 Arrival Date: 03/27/2018 Time: 19:54 Bed 5 Private MD: ED Physician Jose Barillas HPI: 03/27 20:50 This 42 yrs old Male presents to ER via Ambulatory with complaints of Chest cp Pain. 20:50 The patient or guardian reports chest pain that is located primarily in the anterior cp chest wall, left. Onset: 45 minute(s) ago. The pain radiates to the left shoulder. 20:50 The chest pain is described as aching. cp 20:50 Associated signs and symptoms: Pertinent positives: shortness of breath. Duration: The cp patient or guardian reports a single episode, that is now resolved. Patient reports recent hospitalization for rhabdomyolysis and while driving tonight started having left side chest pain. Historical: - Allergies: 20:10 No Known Allergies; lk1 - PMHx: 20:10 Anxiety; rhabdo; lk1 - PSHx: 20:10 Appendectomy; Neck; lk1 - Immunization history:: Adult Immunizations up to date. - Social history:: Smoking status: Patient/guardian denies using tobacco. - Ebola Screening: : No symptoms or risks identified at this time. ROS: 20:55 Constitutional: Negative for body aches, chills, fever, poor PO intake. cp 20:55 Eyes: Negative for injury, pain, redness, and discharge. cp 20:55 Cardiovascular: Positive for chest pain, Negative for edema, palpitations. 20:55 Respiratory: Positive for shortness of breath, Negative for cough, wheezing. 20:55 Abdomen/GI: Negative for abdominal pain, nausea, vomiting, and diarrhea. 20:55 Back: Negative for pain at rest, pain with movement, radiated pain. 20:55 Skin: Negative for cellulitis, rash. 20:55 Neuro: Negative for altered mental status, headache, syncope, near syncope, weakness. 20:55 All other systems are negative. Exam: 20:20 ECG was reviewed by the Attending Physician. cp 21:00 Constitutional: The patient appears in no acute distress, alert, awake, cp non-diaphoretic, non-toxic, well developed, well nourished. 21:00 Head/Face: Normocephalic, atraumatic. Eyes: Pupils equal round and reactive to light, cp extra-ocular motions intact. Lids and lashes normal. Conjunctiva and sclera are non-icteric and not injected. Cornea within normal limits. Periorbital areas with no swelling, redness, or edema. ENT: Nares patent. No nasal discharge, no septal abnormalities noted. Tympanic membranes are normal and external auditory canals are clear. Oropharynx with no redness, swelling, or masses, exudates, or evidence of obstruction, uvula midline. Mucous membranes moist. Neck: Trachea midline, no thyromegaly or masses palpated, and no cervical lymphadenopathy. Supple, full range of motion without nuchal rigidity, or vertebral point tenderness. No Meningismus. Chest/axilla: Normal chest wall appearance and motion. Nontender with no deformity. No lesions are appreciated. 21:00 Cardiovascular: Rate: tachycardic, Rhythm: regular, Pulses: Pulses are 2+ in right radial artery and left radial artery. Heart sounds: murmur, not appreciated, rub, not appreciated, gallop, not appreciated, Edema: is not appreciated, JVD: is not appreciated. 21:00 Respiratory: the patient does not display signs of respiratory distress, Respirations: normal, no use of accessory muscles, no retractions, no splinting, no tachypnea, labored breathing, is not present, Breath sounds: are clear throughout, no decreased breath sounds, no stridor, no wheezing. 21:00 Abdomen/GI: Inspection: abdomen appears normal, Bowel sounds: active, all quadrants, Palpation: abdomen is soft and non-tender, in all quadrants, rebound tenderness, is not appreciated, voluntary guarding, is not appreciated, involuntary guarding, is not appreciated. 21:00 Back: pain, is absent, ROM is normal. 21:00 Skin: cellulitis, is not appreciated, no rash present. 21:00 Neuro: Orientation: to person, place \T\ time. Mentation: lucid, able to follow commands, Motor: moves all fours, strength is normal, Sensation: is normal, Gait: is steady, at a normal pace, without difficulty. Vital Signs: 20:07 BP 148 / 98; Pulse 103; Resp 18; Temp 97.8; Pulse Ox 99% on R/A; Weight 87.54 kg (R); lk1 Height 5 ft. 7 in. (170.18 cm) (R); Pain 6/10; 21:28 BP 146 / 99; Pulse 87; Resp 16; Pulse Ox 99% on R/A; Pain 0/10; aa1 23:43 BP 119 / 82; Pulse 68; Resp 16; Pulse Ox 96% on R/A; Pain 0/10; aa1 03/28 00:22 BP 120 / 78; Pulse 70; Resp 18 S; Temp 97.6; Pulse Ox 99% ; Pain 0/10; ea 03/27 20:07 Body Mass Index 30.23 (87.54 kg, 170.18 cm) lk1 MDM: 03/27 20:24 Patient medically screened. cp 03/28 00:02 The patient was given aspirin in the Emergency Department. cp 00:02 Data reviewed: vital signs, nurses notes, lab test result(s), EKG, radiologic studies, cp plain films, and as a result, I will discharge patient. 00:02 Differential diagnosis: abnormal EKG, acute myocardial infarction, esophagitis, cp gastritis, gastroesophageal reflux disease (GERD), pulmonary embolus, stable angina, unstable angina. Test interpretation: by ED physician or midlevel provider: ECG. 00:02 ED course: VSS. Pain resolved. Initial and repeat troponin and EKGs negative. Will cp discharge to home for continued monitoring. 03/27 20:44 Order name: Basic Metabolic Panel; Complete Time: 22:12 cp 03/27 22:13 Interpretation: Normal except: BUN 19. cp 03/27 20:44 Order name: CBC with Diff; Complete Time: 22:12 cp 03/27 20:44 Order name: Ckmb; Complete Time: 22:12 cp 03/27 20:44 Order name: CPK; Complete Time: 22:12 cp 03/27 22:13 Interpretation: Abnormal: CPK 451. cp 03/27 20:44 Order name: LFT's; Complete Time: 22:12 cp 03/27 20:44 Order name: Magnesium; Complete Time: 22:12 cp 03/27 20:44 Order name: NT PRO-BNP; Complete Time: 22:12 cp 03/27 20:44 Order name: PT-INR; Complete Time: 22:12 cp 03/27 20:44 Order name: Ptt, Activated; Complete Time: 22:12 cp 03/27 20:44 Order name: Troponin (emerg Dept Use Only); Complete Time: 22:12 cp 03/27 20:44 Order name: XRAY Chest (1 view); Complete Time: 21:25 cp 03/27 21:25 Interpretation: Report review. cp 03/27 23:10 Order name: Troponin I; Complete Time: 00:02 cp 03/27 23:29 Order name: Urine Dipstick--Ancillary (enter results) rg2 03/27 23:29 Order name: Urine Dipstick-Ancillary; Complete Time: 00:02 EDMS 03/27 20:44 Order name: EKG; Complete Time: 20:45 cp 03/27 20:44 Order name: Cardiac monitoring; Complete Time: 21:02 cp 03/27 20:44 Order name: EKG - Nurse/Tech; Complete Time: 21:03 cp 03/27 20:44 Order name: IV Saline Lock; Complete Time: 21:28 cp 03/27 20:44 Order name: Labs collected and sent; Complete Time: 21:28 cp 03/27 20:44 Order name: O2 Per Protocol; Complete Time: 21:03 cp 03/27 20:44 Order name: O2 Sat Monitoring; Complete Time: 21:03 cp 03/27 20:44 Order name: Urine Dipstick-Ancillary (obtain specimen); Complete Time: 23:30 cp 03/27 23:10 Order name: EKG; Complete Time: 23:11 cp 03/27 23:10 Order name: EKG - Nurse/Tech; Complete Time: 23:24 cp EC/28 20:20 Rate is 98 beats/min. Rhythm is regular. [place] interval is normal. QRS interval is normal. cp QT interval is normal. No ST changes noted. Interpreted by me. Reviewed by me. Administered Medications: 22:32 Not Given (Patient Refused): Aspirin Chewable Tablet 324 mg PO once; 81 mg tablets x 4 ea Disposition: 03/28 08:07 Co-signature as Attending Physician, Jose Barillas MD I agree with the assessment and wa plan of care. Disposition: 03/28/18 00:03 Discharged to Home. Impression: Chest pain, unspecified. - Condition is Stable. - Discharge Instructions: Nonspecific Chest Pain, Aspirin and Your Heart. - Medication Reconciliation Form, Thank You Letter, Antibiotic Education, Prescription Opioid Use form. - Follow up: Private Physician; When: 1 - 2 days; Reason: Recheck today's complaints. - Problem is new. - Symptoms have improved. Signatures: Dispatcher [employer] EDMS Brad Barlow PA PA cp Kluge, Leah RN RN lk1 Coby Kwok RN RN ea Jose Barillas MD MD wa Corrections: (The following items were deleted from the chart) 03/27 22:13 22:12 Reviewed. cp cp 03/28 00:32 00:03 03/28/2018 00:03 Discharged to Home. Impression: Chest pain, unspecified. ea Condition is Stable. Forms are Medication Reconciliation Form, Thank You Letter, Antibiotic Education, Prescription Opioid Use. Follow up: Private Physician; When: 1 - 2 days; Reason: Recheck today's complaints. Problem is new. Symptoms have improved. cp
--- NOTE | 2018-03-28 00:04 | ER ---
Nurse's Notes [facility] Name: Deniz Mariee Age: 42 yrs Sex: Male : 1975 Arrival Date: 03/27/2018 Time: 19:54 Bed 5 Private MD: Diagnosis: Chest pain, unspecified Presentation: 03/27 20:04 Presenting complaint: Patient states: "I was driving and felt like I was going to pass lk1 out. I was having some tightness in my chest. I was here with rhabdo and I have anxiety, I don't know if that is this, but the pain is the same as the rhabdo.". Transition of care: patient was not received from another setting of care. Onset of symptoms was March 27, 2018 at 19:00. Risk Assessment: Do you want to hurt yourself or someone else? Patient reports no desire to harm self or others. Initial Sepsis Screen: Does the patient meet any 2 criteria? No. Patient's initial sepsis screen is negative. Does the patient have a suspected source of infection? No. Patient's initial sepsis screen is negative. Care prior to arrival: None. 20:04 Method Of Arrival: Ambulatory lk1 20:04 Acuity: GABRIELA 3 lk1 Historical: - Allergies: 20:10 No Known Allergies; lk1 - PMHx: 20:10 Anxiety; rhabdo; lk1 - PSHx: 20:10 Appendectomy; Neck; lk1 - Immunization history:: Adult Immunizations up to date. - Social history:: Smoking status: Patient/guardian denies using tobacco. - Ebola Screening: : No symptoms or risks identified at this time. Screenin:30 Abuse screen: Denies threats or abuse. Denies injuries from another. Nutritional aa1 screening: No deficits noted. Tuberculosis screening: No symptoms or risk factors identified. Fall Risk None identified. Assessment: 20:30 General: Appears in no apparent distress. comfortable, Behavior is calm, cooperative, aa1 appropriate for age. Pain: Complains of pain in chest Pain does not radiate. Pain currently is 0 out of 10 on a pain scale. Quality of pain is described as squeezing, Pain began gradually, Is intermittent. Neuro: Level of Consciousness is awake, alert, obeys commands, Oriented to person, place, time, situation, Moves all extremities. Full function Gait is steady. Cardiovascular: Heart tones S1 S2 present Capillary refill < 3 seconds JVD is absent Patient's skin is warm and dry. Rhythm is regular. Cardiovascular: Reports chest pain, Chest pain is described as mild, quality is tight. Respiratory: Airway is patent Respiratory effort is even, unlabored, Respiratory pattern is regular, symmetrical. GI: No signs and/or symptoms were reported involving the gastrointestinal system. : No signs and/or symptoms were reported regarding the genitourinary system. EENT: No signs and/or symptoms were reported regarding the EENT system. Derm: Skin is intact, is healthy with good turgor, Skin is pink, warm \\T\\ dry. Musculoskeletal: Circulation, motion, and sensation intact. Capillary refill < 3 seconds. 21:25 Reassessment: Patient appears in no apparent distress at this time. Patient and/or aa1 family updated on plan of care and expected duration. Pain level reassessed. Patient is alert, oriented x 3, equal unlabored respirations, skin warm/dry/pink. Awaiting lab results. 22:32 Reassessment: Patient and/or family updated on plan of care and expected duration. Pain ea level reassessed. Patient is alert, oriented x 3, equal unlabored respirations, skin warm/dry/pink. 23:44 Reassessment: Patient appears in no apparent distress at this time. Patient and/or aa1 family updated on plan of care and expected duration. Pain level reassessed. Patient is alert, oriented x 3, equal unlabored respirations, skin warm/dry/pink. Awaiting repeat troponin result. 03/28 00:19 Reassessment: Patient and/or family updated on plan of care and expected duration. Pain ea level reassessed. Patient is alert, oriented x 3, equal unlabored respirations, skin warm/dry/pink. Discharge instructions given to patient, verbalized the understanding of instructions . Vital Signs: 03/27 20:07 BP 148 / 98; Pulse 103; Resp 18; Temp 97.8; Pulse Ox 99% on R/A; Weight 87.54 kg (R); lk1 Height 5 ft. 7 in. (170.18 cm) (R); Pain 6/10; 21:28 BP 146 / 99; Pulse 87; Resp 16; Pulse Ox 99% on R/A; Pain 0/10; aa1 23:43 BP 119 / 82; Pulse 68; Resp 16; Pulse Ox 96% on R/A; Pain 0/10; aa1 03/28 00:22 BP 120 / 78; Pulse 70; Resp 18 S; Temp 97.6; Pulse Ox 99% ; Pain 0/10; ea 03/27 20:07 Body Mass Index 30.23 (87.54 kg, 170.18 cm) 1 ED Course: 03/27 19:54 Patient arrived in ED. ds1 20:07 Triage completed. lk1 20:07 Arm band placed on left wrist. lk1 20:23 Brad Barlow PA is PHCP. cp 20:23 Jose Barillas MD is Attending Physician. cp 20:30 Patient has correct armband on for positive identification. Bed in low position. Call aa1 light in reach. property assessment monitor on. Pulse ox on. NIBP on. 21:00 X-ray completed. Portable x-ray completed in exam room. Patient tolerated procedure bb2 well. 21:01 XRAY Chest (1 view) In Process Unspecified. EDMS 21:02 Rocio Gaitan, RN is Primary Nurse. aa1 21:10 Initial lab(s) drawn, by mo, sent to lab. Inserted saline lock: 20 gauge in left aa1 antecubital area, using aseptic technique. Blood collected. Patient maintains SpO2 saturation greater than 95% on room air. 03/28 00:25 No provider procedures requiring assistance completed. IV discontinued, intact, ea bleeding controlled, No redness/swelling at site. Pressure dressing applied. Administered Medications: 03/27 22:32 Not Given (Patient Refused): Aspirin Chewable Tablet 324 mg PO once; 81 mg tablets x 4 ea Outcome: 03/28 00:03 Discharge ordered by . cp 00:31 Discharged to home ambulatory, with significant other. ea 00:31 Condition: improved 00:31 Discharge instructions given to patient, Instructed on discharge instructions, follow up and referral plans. Demonstrated understanding of instructions, follow-up care. 00:32 Patient left the ED. ea Signatures: Dispatcher [employer] EDMS Rocio Gaitan RN RN aa1 Magui Garg ds1 Brad Barlow PA PA cp Kluge, Leah, RN RN lk1 Coby Kwok RN RN ea Bock, Brittany bb2
[2018-03-28 00:50] VITALS: BP 120/78; TEMP 97.6; O2SAT 99
--- NOTE | 2018-03-28 06:24 | EKG ---
Test Date: 2018-03-27 Test Time: 20:14:23 Emergency Medical Service Manager: JOSE ALFREDO MEASUREMENT RESULTS: Intervals: Rate: 96 PA: 164 QRSD: 90 QT: 340 QTc: 429 Bradshaw: P: 63 PA: 164 QRS: 50 T: 19 INTERPRETIVE STATEMENTS: Normal sinus rhythm with sinus arrhythmia Normal ECG Compared to ECG 03/25/2018 13:45:38 Sinus bradycardia no longer present Electronically Signed On 03-28-18 06:23:44 CDT by Eris Segundo
--- NOTE | 2018-03-28 09:23 | EKG ---
Test Date: 2018-03-27 Test Time: 23:15:03 Qa Automation Architect: DANNY MEASUREMENT RESULTS: Intervals: Rate: 66 ME: 180 QRSD: 100 QT: 380 QTc: 398 Loraine: P: 68 ME: 180 QRS: 43 T: 8 INTERPRETIVE STATEMENTS: Normal sinus rhythm Normal ECG Compared to ECG 03/27/2018 20:14:23 Sinus arrhythmia no longer present Electronically Signed On 03-28-18 09:22:47 CDT by Eris Segundo
== END 2018-03-28 00:32 | disposition home or self-care (01) ==
LOC: ER 19:50
DX: R07.9 Chest pain, unspecified (principal)
CPT/HCPCS: 36415; 71045; 80048; 80076; 81003; 82550; 82553; 83735; 83880; 84484; 85025; 85610; 85730; 93005; 99285

== ENCOUNTER 2018-04-23 00:28 | Emergency (ER) | payer SELFPAY ==
[2018-04-23] MEDS ORDERED: NA CHLORIDE 0.9% 1,000 ML ONE (01:28)
[2018-04-23 01:32] LABS: Absolute Lymphocytes (CBC) 2.2 K/uL (0.7-4.9); Absolute Monocytes 0.9 K/uL (0.1-1.3); Absolute Neutrophil 3.6 K/uL (1.8-8.0); Basophils % 0.9 % (0-1.3); Eosinophils % 1.9 % (0-4.4); Hematocrit 50.8 % (39.6-49.0); Lymphocytes % 32.2 % (15.3-44.8); MCH 29.1 pg (27.0-35.0); MCV 83.5 fL (80-100); MPV 7.5 fL (7.6-11.3); Monocytes % 13.3 % (3.3-12.3); RBC Red Blood Cell Count 6.08 M/uL (4.33-5.43)
[2018-04-23 01:51] LABS: ALT/SGPT 76 U/L (12-78); AST/SGOT 40 U/L (15-37); Albumin 3.7 g/dL (3.4-5.0); Alkaline Phosphatase 53 U/L (45-117); BUN Blood Urea Nitrogen 19 mg/dL (7-18); Bicarbonate 28 mmol/L (21-32); Bilirubin Direct < 0.1 mg/dL (0-0.2); Bilirubin Total 0.3 mg/dL (0.2-1.0); CKMB Creatine Kinase MB 2.8 ng/mL (0.3-3.6); Creatine Phosphokinase 739 U/L (39-308); Glucose Level 106 mg/dL (74-106); Magnesium 2.1 mg/dL (1.8-2.4); NT PRO-BNP 9 pg/mL (<125); Potassium 3.7 mmol/L (3.5-5.1); Protein, Total 7.2 g/dL (6.4-8.2); Sodium Level 140 mmol/L (136-145)
[2018-04-23 02:02] LABS: Protime INR 1.05
--- NOTE | 2018-04-23 02:28 | ER ---
Nurse's Notes [facility] Name: Deniz Mariee Age: 42 yrs Sex: Male : 1975 Arrival Date: 04/23/2018 Time: 00:32 Bed 7 Private MD: Diagnosis: Chest pain Presentation: 04/23 00:58 Presenting complaint: Patient states: States feeling chest tightness, states "When my lp1 blood gets too thick, my chest gets tight"; Patient states appt. on to remove a pint of blood due to thickness per primary physician; States relief from chest tightness at this time. Transition of care: patient was not received from another setting of care. Onset of symptoms was April 23, 2018. Risk Assessment: Do you want to hurt yourself or someone else? Patient reports no desire to harm self or others. Initial Sepsis Screen: Does the patient meet any 2 criteria? No. Patient's initial sepsis screen is negative. Does the patient have a suspected source of infection? No. Patient's initial sepsis screen is negative. Care prior to arrival: None. 00:58 Method Of Arrival: Ambulatory lp1 00:58 Acuity: GABRIELA 3 lp1 Historical: - Allergies: 01:06 No Known Allergies; lp1 - Home Meds: 01:06 testosterone cypionate (bulk) 100 % miscellaneous powd [Active]; lp1 - PMHx: 01:06 Anxiety; Rhabdo; lp1 - PSHx: 01:06 Appendectomy; Neck surgery; lp1 - Immunization history:: Adult Immunizations up to date. - Social history:: Smoking status: Patient/guardian denies using tobacco. - Ebola Screening: : No symptoms or risks identified at this time. Screenin:07 Abuse screen: Denies threats or abuse. Denies injuries from another. Nutritional lp1 screening: No deficits noted. Tuberculosis screening: No symptoms or risk factors identified. Fall Risk None identified. Assessment: 01:21 General: Appears in no apparent distress. Behavior is calm, cooperative, appropriate lp1 for age. Pain: Denies pain. Complains of pain in chest Quality of pain is described as pressure, Aggravated by increased activity. Neuro: Level of Consciousness is awake, alert, obeys commands, Oriented to person, place, time, situation, Pupils are PERRLA. Cardiovascular: Reports chest pain, Patient's skin is warm and dry. Respiratory: Respiratory effort is even, unlabored, Breath sounds are clear bilaterally. Denies shortness of breath. GI: No signs and/or symptoms were reported involving the gastrointestinal system. : No signs and/or symptoms were reported regarding the genitourinary system. EENT: No signs and/or symptoms were reported regarding the EENT system. Derm: Skin is pink, warm \\T\\ dry. Musculoskeletal: Circulation, motion, and sensation intact. 01:29 Reassessment: Patient refused EKG. DR Garber was notified and stated to document patient ao refused. 02:30 Reassessment: Patient appears in no apparent distress at this time. Patient and/or lp1 family updated on plan of care and expected duration. Pain level reassessed. Patient is alert, oriented x 3, equal unlabored respirations, skin warm/dry/pink. Patient states "I never had any of these problems before I began taking Testosterone" Patient denies pain at this time. 03:30 Reassessment: Patient appears in no apparent distress at this time. No changes from lp1 previously documented assessment. Patient and/or family updated on plan of care and expected duration. Pain level reassessed. Vital Signs: 01:04 BP 126 / 80; Pulse 80; Resp 16; Temp 97.9; Pulse Ox 98% on R/A; Weight 87.54 kg; Height lp1 5 ft. 7 in. (170.18 cm); Pain 0/10; 02:00 BP 112 / 67; Pulse 66; Resp 16; Pulse Ox 97% on R/A; lp1 03:00 BP 115 / 69; Pulse 60; Resp 14; Pulse Ox 98% on R/A; lp1 01:04 Body Mass Index 30.23 (87.54 kg, 170.18 cm) lp1 ED Course: 00:32 Patient arrived in ED. al2 00:42 John Garber MD is Attending Physician. pkl 00:51 Efraín Valenzuela, RONNIE is Primary Nurse. ao 01:04 Triage completed. lp1 01:04 Arm band placed on left wrist. lp1 01:15 Patient has correct armband on for positive identification. Pulse ox on. NIBP on. lp1 01:20 Inserted saline lock: 20 gauge in right forearm, using aseptic technique. Blood lp1 collected. 01:23 X-ray completed. Portable x-ray completed in exam room. Patient tolerated procedure kp1 well. 01:23 XRAY Chest (1 view) In Process Unspecified. EDMS 01:48 Denia Ladd, RN is Primary Nurse. lp1 03:28 No provider procedures requiring assistance completed. lp1 03:50 IV discontinued, No redness/swelling at site. Pressure dressing applied. lp1 Administered Medications: 01:30 Drug: NS 0.9% 1000 ml Route: IV; Rate: 125 ml/hr; Site: right forearm; lp1 03:28 Follow up: IV Status: IV converted to saline lock lp1 Outcome: 02:27 Discharge ordered by . pkl 03:51 Discharged to home ambulatory, with family. lp1 03:51 Condition: good 03:51 Discharge instructions given to patient, Instructed on discharge instructions, follow up and referral plans. Demonstrated understanding of instructions, follow-up care. 03:52 Patient left the ED. lp1 Signatures: Dispatcher [employer] EDPR John Garber MD MD pkl Pena, Laura, RN RN lp1 Efraín Valenzuela RN RN ao Poole, Kathy kp1 Nanci, Zoey pickard2 Corrections: (The following items were deleted from the chart) 01:07 01:04 BP 126 / 80; Pulse 80bpm; Resp 16bpm; Pulse Ox 98% RA; lp1 lp1 03:27 01:04 BP 126 / 80; Pulse 80bpm; Resp 16bpm; Pulse Ox 98% RA; 87.54 kg; Height 5 ft. 7 lp1 in.; BMI: 30.2; Pain 0/10; lp1 03:51 02:30 Reassessment: Patient appears in no apparent distress at this time. Patient lp1 and/or family updated on plan of care and expected duration. Pain level reassessed. Patient is alert, oriented x 3, equal unlabored respirations, skin warm/dry/pink. Patient denies pain at this time. lp1
--- NOTE | 2018-04-23 02:28 | EDPHYS ---
Physician Documentation [facility] Name: Deniz Mariee Age: 42 yrs Sex: Male : 1975 Arrival Date: 04/23/2018 Time: 00:32 Bed 7 Private MD: ED Physician John Garber HPI: 04/23 01:12 This 42 yrs old Male presents to ER via Ambulatory with complaints of pkl TIGHTNESS OF CHEST/ THICK BLOOD. 01:12 The patient or guardian reports chest pain that is located primarily in the substernal pkl area. Onset: today. The pain does not radiate. The chest pain is described as tightness. Historical: - Allergies: 01:06 No Known Allergies; lp1 - Home Meds: 01:06 testosterone cypionate (bulk) 100 % miscellaneous powd [Active]; lp1 - PMHx: 01:06 Anxiety; Rhabdo; lp1 - PSHx: 01:06 Appendectomy; Neck surgery; lp1 - Immunization history:: Adult Immunizations up to date. - Social history:: Smoking status: Patient/guardian denies using tobacco. - Ebola Screening: : No symptoms or risks identified at this time. ROS: 01:12 Eyes: Negative for injury, pain, redness, and discharge, ENT: Negative for injury, pkl pain, and discharge, Neck: Negative for injury, pain, and swelling, Cardiovascular: Negative for chest pain, palpitations, and edema, Respiratory: Negative for shortness of breath, cough, wheezing, and pleuritic chest pain, Abdomen/GI: Negative for abdominal pain, nausea, vomiting, diarrhea, and constipation, Back: Negative for injury and pain, : Negative for injury, bleeding, discharge, and swelling, MS/Extremity: Negative for injury and deformity, Skin: Negative for injury, rash, and discoloration, Neuro: Negative for headache, weakness, numbness, tingling, and seizure. Exam: 01:12 Head/Face: Normocephalic, atraumatic. Eyes: Pupils equal round and reactive to light, pkl extra-ocular motions intact. Lids and lashes normal. Conjunctiva and sclera are non-icteric and not injected. Cornea within normal limits. Periorbital areas with no swelling, redness, or edema. ENT: Nares patent. No nasal discharge, no septal abnormalities noted. Tympanic membranes are normal and external auditory canals are clear. Oropharynx with no redness, swelling, or masses, exudates, or evidence of obstruction, uvula midline. Mucous membranes moist. Neck: Trachea midline, no thyromegaly or masses palpated, and no cervical lymphadenopathy. Supple, full range of motion without nuchal rigidity, or vertebral point tenderness. No Meningismus. Chest/axilla: Normal chest wall appearance and motion. Nontender with no deformity. No lesions are appreciated. Cardiovascular: Regular rate and rhythm with a normal S1 and S2. No gallops, murmurs, or rubs. Normal PMI, no JVD. No pulse deficits. Respiratory: Lungs have equal breath sounds bilaterally, clear to auscultation and percussion. No rales, rhonchi or wheezes noted. No increased work of breathing, no retractions or nasal flaring. Abdomen/GI: Soft, non-tender, with normal bowel sounds. No distension or tympany. No guarding or rebound. No evidence of tenderness throughout. Back: No spinal tenderness. No costovertebral tenderness. Full range of motion. Skin: Warm, dry with normal turgor. Normal color with no rashes, no lesions, and no evidence of cellulitis. MS/ Extremity: Pulses equal, no cyanosis. Neurovascular intact. Full, normal range of motion. Neuro: Awake and alert, GCS 15, oriented to person, place, time, and situation. Cranial nerves II-XII grossly intact. Motor strength 5/5 in all extremities. Sensory grossly intact. Cerebellar exam normal. Normal gait. Vital Signs: 01:04 BP 126 / 80; Pulse 80; Resp 16; Temp 97.9; Pulse Ox 98% on R/A; Weight 87.54 kg; Height lp1 5 ft. 7 in. (170.18 cm); Pain 0/10; 02:00 BP 112 / 67; Pulse 66; Resp 16; Pulse Ox 97% on R/A; lp1 03:00 BP 115 / 69; Pulse 60; Resp 14; Pulse Ox 98% on R/A; lp1 01:04 Body Mass Index 30.23 (87.54 kg, 170.18 cm) lp1 MDM: 00:42 Patient medically screened. pkl 02:26 Data reviewed: vital signs, nurses notes, lab test result(s), radiologic studies, plain pkl films. 02:28 ED course: Discussed lab. and chest X-rays results. Patient refused EKG. pkl 04/23 01:11 Order name: Basic Metabolic Panel; Complete Time: 02: pkl 04/23 01:11 Order name: CBC with Diff; Complete Time: 02: pkl 04/23 01:11 Order name: Ckmb; Complete Time: 02: pkl 04/23 01:11 Order name: CPK; Complete Time: 02: pkl 04/23 01:11 Order name: LFT's; Complete Time: 02: pkl 04/23 01:11 Order name: Magnesium; Complete Time: 02: pkl 04/23 01:11 Order name: NT PRO-BNP; Complete Time: 02: pkl 04/23 01:11 Order name: PT-INR; Complete Time: 02: pkl 04/23 01:11 Order name: Ptt, Activated; Complete Time: 02: pkl 04/23 01:11 Order name: Troponin (emerg Dept Use Only); Complete Time: 02: pkl 04/23 01:11 Order name: XRAY Chest (1 view) pkl 04/23 01:11 Order name: Cardiac monitoring; Complete Time: pkl 04/23 01:11 Order name: IV Saline Lock; Complete Time: pkl 04/23 01:11 Order name: Labs collected and sent; Complete Time: pkl 04/23 01:11 Order name: O2 Per Protocol; Complete Time: pkl 04/23 01:11 Order name: O2 Sat Monitoring; Complete Time: pkl Administered Medications: 01:30 Drug: NS 0.9% 1000 ml Route: IV; Rate: 125 ml/hr; Site: right forearm; lp1 03:28 Follow up: IV Status: IV converted to saline lock lp1 Disposition: 04/23/18 02:27 Discharged to Home. Impression: Chest pain. - Condition is Stable. - Medication Reconciliation Form, Thank You Letter, Antibiotic Education, Prescription Opioid Use form. - Follow up: Private Physician; When: 2 - 3 days; Reason: Re-evaluation by your physician. - Problem is new. - Symptoms have improved. Signatures: Dispatcher [employer] EDMS John Garber MD MD pkl Denia Ladd RN RN lp1 Corrections: (The following items were deleted from the chart) 01:29 01:11 EKG - Nurse/Tech ordered. pkl ao 03:52 02:27 04/23/2018 02:27 Discharged to Home. Impression: Chest pain. Condition is Stable. lp1 Forms are Medication Reconciliation Form, Thank You Letter, Antibiotic Education, Prescription Opioid Use. Follow up: Private Physician; When: 2 - 3 days; Reason: Re-evaluation by your physician. Problem is new. Symptoms have improved. pkl
[2018-04-23 03:57] VITALS: TEMP 97.9
[2018-04-23 03:59] VITALS: BP 115/69; O2SAT 98
--- NOTE | 2018-04-23 07:22 | RAD REPORT ---
EXAM DESCRIPTION: RAD - Chest Single View - 04/23/2018 1:25 am CLINICAL HISTORY: Chest pain COMPARISON: February 2018 TECHNIQUE: AP portable chest image was obtained 0112 hours . FINDINGS: No peripheral mass or consolidation. No failure or volume overload. Mild prominence of the interstitial markings has not changed. Trachea is midline. Heart and vasculature are normal. No measurable pleural effusion and no pneumothorax. No gross bony abnormality seen. No acute aortic findings suspected. IMPRESSION: No acute cardiopulmonary process. No significant interval change.
== END 2018-04-23 03:52 | disposition home or self-care (01) ==
LOC: ER 00:28
DX: R07.89 Other chest pain (principal)
CPT/HCPCS: 36415; 71045; 80048; 80076; 82550; 82553; 83735; 83880; 84484; 85025; 85610; 85730; 96360; 96361; 99284; J7030

== ENCOUNTER 2018-05-22 12:30 | Emergency (ER) | payer SELFPAY ==
--- NOTE | 2018-05-22 13:29 | ER ---
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 Transition of care: patient was not received from another setting of care. Onset of symptoms was May 22, 2018. Risk Assessment: Do you want to hurt yourself or someone else? Patient reports no desire to harm self or others. Initial Sepsis Screen: Does the patient meet any 2 criteria? No. Patient's initial sepsis screen is negative. Does the patient have a suspected source of infection? No. Patient's initial sepsis screen is negative. 12:53 Method Of Arrival: Ambulatory sg 12:53 Acuity: GABRIELA 4 sg 13:04 Note pt requesting to sit in the lobby until " feel bad again, cause it comes in sg waves.". Historical: - Allergies: 13:04 No Known Allergies; sg - PMHx: 13:04 Anxiety; Rhabdo; sg - PSHx: 13:04 Appendectomy; Neck surgery; sg - Immunization history:: Adult Immunizations. - Social history:: Smoking status: Patient/guardian denies using tobacco. - Ebola Screening: : Patient negative for fever greater than or equal to 101.5 degrees Fahrenheit, and additional compatible Ebola Virus Disease symptoms Patient denies exposure to infectious person Patient denies travel to an Ebola-affected area in the 21 days before illness onset No symptoms or risks identified at this time. 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 Pt states "I don't wanna get a bill, I can just go to [place] and be seen for free, my mom works there, they know me there", I advised pt that it is his right to go to a different facility but we are more than happy to treat him here, pt states "why would I wanna be seen by y'all, my rhabdo was over 700 and 800 last time and my doctor said i shouldn't have been discharged". I asked pt if he would like to be seen in our ER or leave but he needs to make a decision, pt chooses to leave. Pt observed walking to his vehicle and driving away. Vital Signs: 13:02 BP 139 / 96; Pulse 60; Resp 14; Temp 97.7; Pulse Ox 97% on R/A; Pain 0/10; sg ED Course: 12:32 Patient arrived in ED. mr 12:32 Antelmo Vásquez MD is Private Physician. mr 12:56 Triage completed. sg 13:02 Arm band placed on. sg Administered Medications: No medications were administered Outcome: 13:26 Eloped from waiting room, Time discovered patient gone: May 22, 2018 at 13:20 iw 13:28 Patient left the ED. iw Signatures: Julio Cesar Bennett, RN RN Sharon Jeffries Irene, RN RONNIE iw
[2018-05-22 13:44] VITALS: BP 139/96; TEMP 97.7; O2SAT 97
== END 2018-05-22 13:28 | disposition left against medical advice (07) ==
LOC: ER 12:30
DX: Z53.21 Procedure and treatment not carried out due to patient leaving prior to being seen by health care provider (principal)
CPT/HCPCS: 99281

== ENCOUNTER 2020-01-11 12:32 | Emergency (ER) | payer SELFPAY ==
[2020-01-11] MEDS ORDERED: LORazepam 2 MG/ML VIAL ONE (13:02)
[2020-01-11 13:50] LABS: Basophils % 0.4 % (0-1.3); Hematocrit 42.8 % (39.6-49.0); Lymphocytes % 19.8 % (15.3-44.8); MPV 7.9 fL (7.6-11.3); RBC Red Blood Cell Count 5.05 M/uL (4.33-5.43)
[2020-01-11 13:53] LABS: Protime INR 1.12
[2020-01-11 14:14] LABS: ALT/SGPT 58 U/L (12-78); AST/SGOT 78 U/L (15-37); Albumin 3.9 g/dL (3.4-5.0); Alkaline Phosphatase 52 U/L (45-117); BUN Blood Urea Nitrogen 9 mg/dL (7-18); Bicarbonate 23 mmol/L (21-32); Bilirubin Direct 0.1 mg/dL (0-0.2); Bilirubin Total 0.5 mg/dL (0.2-1.0); Glucose Level 93 mg/dL (74-106); Potassium 3.3 mmol/L (3.5-5.1); Protein, Total 7.3 g/dL (6.4-8.2); Sodium Level 141 mmol/L (136-145)
[2020-01-11 14:45] LABS: Barbiturates NEGATIVE (NEGATIVE); Benzodiazepines NEGATIVE (NEGATIVE); Cocaine NEGATIVE (NEGATIVE); METHAMPHETAM NEGATIVE (NEGATIVE); Methadone NEGATIVE (NEGATIVE); Opiates NEGATIVE (NEGATIVE); Phencyclidine NEGATIVE (NEGATIVE); THC Cannibis NEGATIVE (NEGATIVE)
[2020-01-11 14:52] LABS: Urine Blood NEGATIVE (NEG); Urine Glucose NEGATIVE (NEG); Urine Protein NEGATIVE (NEG); Urine Specific Gravity 1.015 (1.005-1.030); Urine pH >8.5 (5.0-7.0)
--- NOTE | 2020-01-11 15:03 | EDPHYS ---
Physician Documentation [facility] Name: Deniz Mariee Age: 44 yrs Sex: Male : 1975 Arrival Date: 01/11/2020 Time: 12:33 Bed 5 Private MD: ED Physician Brad Pagan HPI: 01/10 14:37 This 44 yrs old Male presents to ER via Wheelchair with complaints of feels kb weird. 14:37 The patient presents to the emergency department with anxiety. Onset: The kb symptoms/episode began/occurred 3 hour(s) ago. Associated signs and symptoms: Pertinent positives; anxiety. Severity of symptoms: At their worst the symptoms were moderate in the emergency department the symptoms are unchanged. The patient has not experienced similar symptoms in the past. The patient has not recently seen a physician. Pt reports he drank a bottle of water he got from the store around 0900 or 1000 this morning. States he was going to go to the gym after that, but started feeling weird. States the feeling got worse, he laid in bed and felt like he was drunk. Pt states he thinks something was in the water he drank that is making him feel weird so he came to get checked out. Historical: - Allergies: 13:02 No Known Allergies; iw - PMHx: 13:02 Anxiety; Rhabdo; iw - PSHx: 13:02 Appendectomy; Neck surgery; iw - Immunization history:: Adult Immunizations not up to date. - Social history:: Smoking status: Patient denies any tobacco usage or history of. ROS: 14:35 Constitutional: Negative for fever, chills, and weight loss, Neck: Negative for injury, kb pain, and swelling, Cardiovascular: Negative for chest pain, palpitations, and edema, Respiratory: Negative for shortness of breath, cough, wheezing, and pleuritic chest pain, Abdomen/GI: Negative for abdominal pain, nausea, vomiting, diarrhea, and constipation, Back: Negative for injury and pain, MS/Extremity: Negative for injury and deformity, Skin: Negative for injury, rash, and discoloration. 14:35 Neuro: Positive for "feel weird like I'm drunk". Exam: 14:35 Constitutional: This is a well developed, well nourished patient who is awake, alert, kb and in no acute distress. Head/Face: Normocephalic, atraumatic. Neck: Trachea midline, no thyromegaly or masses palpated, and no cervical lymphadenopathy. Supple, full range of motion without nuchal rigidity, or vertebral point tenderness. No Meningismus. Chest/axilla: Normal chest wall appearance and motion. Nontender with no deformity. No lesions are appreciated. Cardiovascular: Regular rate and rhythm with a normal S1 and S2. No gallops, murmurs, or rubs. Normal PMI, no JVD. No pulse deficits. Respiratory: Lungs have equal breath sounds bilaterally, clear to auscultation and percussion. No rales, rhonchi or wheezes noted. No increased work of breathing, no retractions or nasal flaring. Abdomen/GI: Soft, non-tender, with normal bowel sounds. No distension or tympany. No guarding or rebound. No evidence of tenderness throughout. Skin: Warm, dry with normal turgor. Normal color with no rashes, no lesions, and no evidence of cellulitis. MS/ Extremity: Pulses equal, no cyanosis. Neurovascular intact. Full, normal range of motion. Neuro: Awake and alert, GCS 15, oriented to person, place, time, and situation. Cranial nerves II-XII grossly intact. Motor strength 5/5 in all extremities. Sensory grossly intact. Cerebellar exam normal. Normal gait. 14:35 Psych: Behavior/mood is anxious, Affect is animated, Oriented to person, place, time, Patient has no thoughts/intents to harm self or others. Judgement / Insight is normal. Memory is normal. Delusions/hallucinations are not present. Vital Signs: 13:03 BP 125 / 62; Pulse 94; Resp 25 S; Pulse Ox 98% on R/A; Weight 83.46 kg; Height 5 ft. 7 iw in. (170.18 cm); Pain 10/10; 13:15 BP 122 / 77; Pulse 91; Resp 19; Pulse Ox 100% ; bp 14:15 BP 110 / 70; Pulse 79; Resp 16; Pulse Ox 100% on R/A; hb 15:33 BP 118 / 80; Pulse 67; Resp 16; Temp 98.5; Pulse Ox 98% ; bp 13:03 Body Mass Index 28.82 (83.46 kg, 170.18 cm) iw MDM: 12:53 Patient medically screened. kb 14:35 Data reviewed: vital signs, nurses notes. Data interpreted: Pulse oximetry: on room air kb is 100 %. Interpretation: normal. 15:01 Counseling: I had a detailed discussion with the patient and/or guardian regarding: the kb historical points, exam findings, and any diagnostic results supporting the discharge/admit diagnosis, lab results, the need for outpatient follow up, a family practitioner, to return to the emergency department if symptoms worsen or persist or if there are any questions or concerns that arise at home. 01/10 12:54 Order name: Acetaminophen; Complete Time: 14:17 kb 01/10 12:54 Order name: Basic Metabolic Panel; Complete Time: 14:17 kb 01/10 12:54 Order name: CBC with Diff; Complete Time: 14:17 kb 01/10 12:54 Order name: ETOH Level; Complete Time: 14:17 kb 01/10 12:54 Order name: Hepatic Function; Complete Time: 14:17 kb 01/10 12:54 Order name: PT-INR; Complete Time: 14:17 kb 01/10 12:54 Order name: Ptt, Activated; Complete Time: 14:17 kb 01/10 12:54 Order name: Salicylate; Complete Time: 14:17 kb 01/10 12:54 Order name: Urine Drug Screen; Complete Time: 14:48 kb 01/10 12:54 Order name: EKG; Complete Time: 12:55 kb 01/10 14:40 Order name: Urine Dipstick--Ancillary (enter results); Complete Time: 14:54 bd 01/10 12:54 Order name: EKG - Nurse/Tech; Complete Time: 15:34 kb 01/10 12:54 Order name: IV Saline Lock; Complete Time: 13:10 kb 01/10 12:54 Order name: Labs collected and sent; Complete Time: 13:10 kb 01/10 12:54 Order name: Urine Dipstick-Ancillary (obtain specimen); Complete Time: 15:34 kb 01/10 13:13 Order name: Labs - recollect needed: recollect all blood; Complete Time: 13:41 bd Administered Medications: 13:10 Drug: Ativan 0.5 mg Route: IVP; Site: right antecubital; bp 14:56 Follow up: Response: Anxiety decreased bp 14:53 CANCELLED (Physician Discretion): Reyna 10 mg PO once kb 15:30 Drug: Potassium Chloride 20 mEq Route: PO; bp 15:30 Follow up: Response: No adverse reaction bp Disposition: 01/11 13:56 Co-signature as Attending Physician, Brad Pagan MD I agree with the assessment and vickie plan of care. Disposition: 01/11/20 15:02 Discharged to Home. Impression: Anxiety disorder, unspecified. - Condition is Stable. - Discharge Instructions: Hyperventilation, Panic Attacks, [id number]. - Medication Reconciliation Form, Thank You Letter, Antibiotic Education, Prescription Opioid Use form. - Follow up: Emergency Department; When: As needed; Reason: Worsening of condition. Follow up: Private Physician; When: 2 - 3 days; Reason: Recheck today's complaints, Continuance of care, Re-evaluation by your physician. Signatures: Dispatcher [employer] EDMS Saira Ignacio, MUMTAZ TEA BAG MACHINE TENDER-Mayra Rose Corey, MD MD cha Williams, Irene, RN RN Rikki Ferrera, RONNIE RN bp Corrections: (The following items were deleted from the chart) 01/10 14:53 14:53 Norvasc 10 mg PO once ordered. kb kb 15:34 15:02 01/11/2020 15:02 Discharged to Home. Impression: Anxiety disorder, unspecified. bp Condition is Stable. Forms are Medication Reconciliation Form, Thank You Letter, Antibiotic Education, Prescription Opioid Use. Follow up: Emergency Department; When: As needed; Reason: Worsening of condition. Follow up: Private Physician; When: 2 - 3 days; Reason: Recheck today's complaints, Continuance of care, Re-evaluation by your physician. kb
--- NOTE | 2020-01-11 15:03 | ER ---
Nurse's Notes [facility] Name: Deniz Mariee Age: 44 yrs Sex: Male : 1975 Arrival Date: 01/11/2020 Time: 12:33 Bed 5 Private MD: Diagnosis: Anxiety disorder, unspecified Presentation: 01/10 12:57 Chief complaint: Patient states: started feeling dehydrated this morning, states he has iw been doing cardio around his apartments, pt states he started feeling weird like he was drunk or on drugs after drinking water from the store, pt arrives to ER, hyperventilating, pt laid himself on the floor in ER lobby, pt was able to get himself up into wheelchair unassisted, pt still. hyperventilating after being placed in bed 5, NRB mask placed on patient, pt states he has had rhabdo before , no other medical problems. Coronavirus screen: Proceed with normal triage. Patient denies a cough. Patient reports shortness of breath or difficulty breathing. Patient denies measured and/or subjective temperature greater than 100.4F prior to today's visit. Ebola Screen: Patient negative for fever greater than or equal to 101.5 degrees Fahrenheit, and additional compatible Ebola Virus Disease symptoms Patient denies exposure to infectious person. Patient denies travel to an Ebola-affected area in the 21 days before illness onset. No symptoms or risks identified at this time. Initial Sepsis Screen: Does the patient meet any 2 criteria? No. Patient's initial sepsis screen is negative. Does the patient have a suspected source of infection? No. Patient's initial sepsis screen is negative. Risk Assessment: Do you want to hurt yourself or someone else? Patient reports no desire to harm self or others. Onset of symptoms was January 11, 2020. 12:57 Method Of Arrival: Wheelchair iw 12:57 Acuity: GABRIELA 3 iw Triage Assessment: 13:11 General: Appears distressed, comfortable, Behavior is cooperative, agitated, anxious. bp Pain: Denies pain. EENT: No deficits noted. Neuro: Level of Consciousness is awake, alert, obeys commands, Oriented to person, place, time, situation. Cardiovascular: No deficits noted. Respiratory: No deficits noted. GI: No signs and/or symptoms were reported involving the gastrointestinal system. : No signs and/or symptoms were reported regarding the genitourinary system. Derm: No deficits noted. Musculoskeletal: No deficits noted. Historical: - Allergies: 13:02 No Known Allergies; iw - PMHx: 13:02 Anxiety; Rhabdo; iw - PSHx: 13:02 Appendectomy; Neck surgery; iw - Immunization history:: Adult Immunizations not up to date. - Social history:: Smoking status: Patient denies any tobacco usage or history of. Screenin:14 Abuse screen: Denies threats or abuse. Denies injuries from another. Nutritional bp screening: No deficits noted. Tuberculosis screening: No symptoms or risk factors identified. Fall Risk None identified. Assessment: 13:12 General: Behavior is agitated, anxious, SEE TRIAGE NOTE. bp 14:30 Reassessment: PT ANXIOUS, NOTABLY LESS AGITATED. VS STABLE ON MONITOR. bp 15:30 Reassessment: PT D/C HOME AMBULATORY, DX WITH ANXIETY D/O. bp Vital Signs: 13:03 BP 125 / 62; Pulse 94; Resp 25 S; Pulse Ox 98% on R/A; Weight 83.46 kg; Height 5 ft. 7 iw in. (170.18 cm); Pain 10/10; 13:15 BP 122 / 77; Pulse 91; Resp 19; Pulse Ox 100% ; bp 14:15 BP 110 / 70; Pulse 79; Resp 16; Pulse Ox 100% on R/A; hb 15:33 BP 118 / 80; Pulse 67; Resp 16; Temp 98.5; Pulse Ox 98% ; bp 13:03 Body Mass Index 28.82 (83.46 kg, 170.18 cm) ED Course: 12:33 Patient arrived in ED. ag5 12:53 Saira Ignacio FNP-C is PHCP. kb 12:53 Brad Pagan MD is Attending Physician. kb 12:54 Rikki Zuniga, RONNIE is Primary Nurse. bp 13:01 Triage completed. iw 13:10 Inserted saline lock: 18 gauge in right antecubital area, using aseptic technique. bp Blood collected. 13:11 Arm band placed on. bp 13:14 Patient has correct armband on for positive identification. Bed in low position. Call bp light in reach. Side rails up X2. front desk monitor on. Pulse ox on. NIBP on. 15:32 No provider procedures requiring assistance completed. IV discontinued, intact, bp bleeding controlled, No redness/swelling at site. Pressure dressing applied. Administered Medications: 13:10 Drug: Ativan 0.5 mg Route: IVP; Site: right antecubital; bp 14:56 Follow up: Response: Anxiety decreased bp 14:53 CANCELLED (Physician Discretion): Norvasc 10 mg PO once kb 15:30 Drug: Potassium Chloride 20 mEq Route: PO; bp 15:30 Follow up: Response: No adverse reaction bp Outcome: 15:02 Discharge ordered by MD. kb 15:32 Discharged to home ambulatory. bp 15:32 Condition: stable 15:32 Discharge instructions given to patient, Instructed on discharge instructions, follow up and referral plans. Demonstrated understanding of instructions, follow-up care. 15:34 Patient left the ED. bp Signatures: Saira Ignacio, HUC-C HUC-CkSelena Ceja, RN RN Dot Sinha RN RN Rikki Zuniga RN RN Elvin Vasquez ag5
[2020-01-11] MEDS ORDERED: POTASSIUM 25 MEQ EFFERV TAB ONE (15:28)
[2020-01-11 15:48] VITALS: BP 118/80; TEMP 98.5; O2SAT 98
--- NOTE | 2020-01-11 16:16 | EKG ---
Test Date: 2020-01-11 Test Time: 13:29:26 Handstitching Machine Collar Feller: PERLITA MEASUREMENT RESULTS: Intervals: Rate: 76 VA: 160 QRSD: 86 QT: 396 QTc: 445 [place]: P: 63 VA: 160 QRS: 65 T: 12 INTERPRETIVE STATEMENTS: Sinus rhythm with marked sinus arrhythmia Otherwise normal ECG Compared to ECG 03/27/2018 23:15:03 No significant changes Electronically Signed On 01-11-20 16:15:59 CDT by Nils Mei
== END 2020-01-11 15:34 | disposition home or self-care (01) ==
LOC: ER 12:32
DX: F41.9 Anxiety disorder, unspecified (principal)
CPT/HCPCS: 36415; 80048; 80076; 80307; 80320; 80329; 81003; 85025; 85610; 85730; 93005; 96374; 99284